=== PATIENT | female | born 1970 | race Hispanic/Latino ===

== ENCOUNTER 2023-12-25 08:51 | Day surgery (SDC) | payer OTHER ==
[~2023-12-25] VITALS: Ht 154.9 cm; Wt 108.9 kg
[~2023-12-25 08:51] MED LIST: BAYER ASPIRIN E81 MG PO; CITALOPRAM20 MG PO; DORZOLAMIDE HCL2 % IO; ISOSORB MONO30 MG PO; LASIX 40 MG TAB40 MG PO; METHOCARBAMOL500 MG PO; NITROSTAT0.4 MG SL; OXYBUTYNIN CHLOR5 M2 PO; PROTONIX40 M2 PO; TYLENOL500 MG PO
[2023-12-25] MEDS ORDERED: SODIUM CHLORIDE 0.9% 1,000 ML IV ONE (09:11)
[2023-12-25] MEDS ORDERED: FAMOTIDINE 10MG/ML 2ML SDV IV ONE (09:11)
[2023-12-25 10:37] VITALS: BP 130/81
[2023-12-25] MEDS ORDERED: PROPOFOL 500 MG/50 ML VIAL IV ONE (12:53)
[2023-12-25] MEDS ORDERED: LIDOCAINE HCL 2% 2ML SDV IV ONE (12:53)
[2023-12-25] MEDS ORDERED: GLYCOPYRROLATE 0.2 MG/ML IV ONE (12:53)
== END 2023-12-25 10:50 | disposition home or self-care (01) | DRG 379 ==
LOC: ORM 08:51
PROVIDERS: ATTEND Internal Medicine Gastroenterology
PROC: 0DBK8ZX Excision of Ascending Colon, Via Natural or Artificial Opening Endoscopic, Diagnostic (ICD-10-PCS; principal; 2023-12-25)
PROC: 0DBL8ZX Excision of Transverse Colon, Via Natural or Artificial Opening Endoscopic, Diagnostic (ICD-10-PCS; 2023-12-25)
PROC: 0DBP8ZX Excision of Rectum, Via Natural or Artificial Opening Endoscopic, Diagnostic (ICD-10-PCS; 2023-12-25)
PROC: 0DBM8ZX Excision of Descending Colon, Via Natural or Artificial Opening Endoscopic, Diagnostic (ICD-10-PCS; 2023-12-25)
DX: K92.1 Melena (principal); K62.89 Other specified diseases of anus and rectum; K64.8 Other hemorrhoids; I10 Essential (primary) hypertension; K21.9 Gastro-esophageal reflux disease without esophagitis; E11.9 Type 2 diabetes mellitus without complications; E78.5 Hyperlipidemia, unspecified; J45.909 Unspecified asthma, uncomplicated; Z95.5 Presence of coronary angioplasty implant and graft; Z87.891 Personal history of nicotine dependence; Z86.010 Personal history of colon polyps